=== PATIENT | male | born 1945 | race Asian ===

== ENCOUNTER 2016-08-06 01:30 | Inpatient (IN) | payer MEDICAID, MEDICARE, OTHER ==
[2016-08-06] VITALS (8 sets, daily range): BP systolic 112–147; BP diastolic 66–109
[~2016-08-06] VITALS: Ht 170.2 cm; Wt 70.8 kg
[2016-08-06] MEDS: DuoNeb 0.5-3(2.5)mg/3ml neb HHN SCH ×3 (01:45→02:12)
[2016-08-06 01:57] LABS: BASOPHILS % (AUTO) 0.8 % (0.0-2.0); EOSINOPHILS % (AUTO) 12.9 % (0.0-3.0); LYMPHOCYTES % (AUTO) 22.5 % (20.0-45.0); MEAN CORPUSCULAR HEMOGLOBIN 31.5 PG (27.0-31.0); MEAN CORPUSCULAR HGB CONC 34.6 G/DL (32.0-36.0); MEAN CORPUSCULAR VOLUME 91 FL (80-99); MEAN PLATELET VOLUME 4.8 FL (6.5-10.1); NEUTROPHILS % (AUTO) 56.9 % (45.0-75.0); PLATELET COUNT 369 K/UL (150-450); RED BLOOD COUNT 5.14 M/UL (4.70-6.10); WHITE BLOOD COUNT 13.2 K/UL (4.8-10.8)
[2016-08-06 02:28] LABS: ALANINE AMINOTRANSFERASE 25 U/L (3-41); ALBUMIN/GLOBULIN RATIO 1.5 (1.0-2.7); ANION GAP 17 (5-15); ASPARTATE AMINO TRANSFERASE 21 U/L (5-40); CALCIUM 8.8 mg/dL (8.6-10.2); CARBON DIOXIDE 24 mEQ/L (20-30); CHLORIDE 101 mEQ/L (98-107); CREATININE 1.1 mg/dL (0.7-1.2); HEMOLYSIS 9; POTASSIUM 3.6 mEQ/L (3.4-4.9); SODIUM 142 mEQ/L (135-145)
[2016-08-06 02:29] LABS: TROPONIN I < 0.30 ng/mL (<=0.30)
[2016-08-06] MEDS ORDERED: Solu-MEDROL 125mg Inj IVP ONE (02:30)
[2016-08-06 02:38] LABS: CKMB 6.8 ng/mL (< 6.7)
[2016-08-06] MEDS ORDERED: SINGULAIR10 MG ORAL (03:10)
[2016-08-06] MEDS ORDERED: PROAIR HFA8.5 GM INH (03:10)
--- NOTE | 2016-08-06 03:40 | Emergency Room Report ---
History of Present Illness General Chief Complaint: Dyspnea/Respdistress Source: Patient, EMS Present Illness HPI Patient is a 71-year-old male who presented after increased difficulty breathing. Patient prior history of asthma. He had acute worsening of symptoms over the past few hours. Patient was ambulatory prior to presentation. Patient had previously been taking albuterol inhaler as well as Singulair. I had prior history of asthma. The patient was brought in by EMS on CPAP. He was noted to have moderate difficulty breathing. Allergies: Coded Allergies: No Known Allergies (Unverified , 08/06/16) Patient History Past Medical History: asthma Reviewed Nursing Documentation: PMH: Agreed, PSxH: Agreed Nursing Documentation-PMH Past Medical History: No History, Except For Hx Asthma: Yes Hx COPD: Yes Review of Systems All Other Systems: limited - by acuity Physical Exam Vital Signs Date Time Temp Pulse Resp B/P Pulse Ox O2 Delivery O2 Flow Rate FiO2 08/06/16 01:35 98.2 126 28 164/94 99 Bi-pap 35 Sp02 EP Interpretation: reviewed, normal General Appearance: normal inspection, alert, GCS 15, moderate distress Head: atraumatic ENT: normal ENT inspection, hearing grossly normal, normal voice Neck: normal inspection, full range of motion, supple, no bony tend Respiratory: normal inspection, no retraction, accessory muscle use, wheezing Cardiovascular #1: regular rate, rhythm, no edema Gastrointestinal: normal inspection, normal bowel sounds, non tender, soft, no guarding, no hernia Genitourinary: no CVA tenderness Musculoskeletal: normal inspection, back normal, normal range of motion Neurologic: normal inspection, alert, oriented x3, responsive, speech normal Psychiatric: normal inspection, judgement/insight normal, mood/affect normal Skin: normal inspection, normal color, no rash Medical Decision Making Diagnostic Impression: Primary Impression: Asthma exacerbation ER Course Patient presented for shortness of breath. Differential included but was not limited to anemia, pneumonia, pneumothorax, myocardial infarction, pericardial effusion, congestive heart failure, acidosis. Because of complexity of patient' s case laboratory testing and imaging studies were ordered. EKG interpreted by me showed sinus tachycardia with a rate of [address] there were [address] acute ST or T wave changes noted. The patient was given IV Solu-Medrol as well as multiple breathing treatments with improvement. Patient was placed on BiPAP on arrival. He seemed to have some improvement was subsequently placed on nasal cannula. Dr. Yusuf was contacted for inpatient management due to need for inpatient monitoring and treatment. Labs Test 08/06/16 01:40 White Blood Count 13.2 K/UL (4.8-10.8) Red Blood Count 5.14 M/UL (4.70-6.10) Hemoglobin 16.2 G/DL (14.2-18.0) Hematocrit 46.7 % (42.0-52.0) Mean Corpuscular Volume 91 FL (80-99) Mean Corpuscular Hemoglobin 31.5 PG (27.0-31.0) Mean Corpuscular Hemoglobin Concent 34.6 G/DL (32.0-36.0) Red Cell Distribution Width 12.0 % (11.6-14.8) Platelet Count 369 K/UL (150-450) Mean Platelet Volume 4.8 FL (6.5-10.1) Neutrophils (%) (Auto) 56.9 % (45.0-75.0) Lymphocytes (%) (Auto) 22.5 % (20.0-45.0) Monocytes (%) (Auto) 7.0 % (1.0-10.0) Eosinophils (%) (Auto) 12.9 % (0.0-3.0) Basophils (%) (Auto) 0.8 % (0.0-2.0) Sodium Level 142 mEQ/L (135-145) Potassium Level 3.6 mEQ/L (3.4-4.9) Chloride Level 101 mEQ/L (98-107) Carbon Dioxide Level 24 mEQ/L (20-30) Anion Gap 17 (5-15) Blood Urea Nitrogen 18 mg/dL (7-23) Creatinine 1.1 mg/dL (0.7-1.2) Estimat Glomerular Filtration Rate mL/min (>60) Glucose Level 119 mg/dL (74-106) Calcium Level 8.8 mg/dL (8.6-10.2) Total Bilirubin 0.6 mg/dL (0.0-1.2) Aspartate Amino Transf (AST/SGOT) 21 U/L (5-40) Alanine Aminotransferase (ALT/SGPT) 25 U/L (3-41) Alkaline Phosphatase 55 U/L (40-129) Total Creatine Kinase 115 U/L (38-174) Creatine Kinase MB 6.8 ng/mL (< 6.7) Creatine Kinase MB Relative Index 5.9 Troponin I < 0.30 ng/mL (<=0.30) Pro-B-Type Natriuretic Peptide 20 pg/mL (0-125) Total Protein 7.0 g/dL (6.6-8.7) Albumin 4.2 g/dL (3.5-5.2) Globulin 2.8 g/dL Albumin/Globulin Ratio 1.5 (1.0-2.7) EKG Diagnostic Results Rate: tachycardiac Rhythm: NSR ST Segments: no acute changes ASA given to the pt in ED: No Rhythm Strip Diag. Results EP Interpretation: yes Rhythm: no PVC's, no ectopy, other Chest X-Ray Diagnostic Results Chest X-Ray Ordered: Yes # of Views/Limited/Complete: 1 View Interpretation: no consolidation, no effusion, no pneumothorax, no acute cardiopulmonary disease Indication: Shortness of Breath Impression: No acute disease Date Electronically Signed: Aug 06, 2016 Time Electronically Signed: 03:37 Last Vital Signs Date Time Temp Pulse Resp B/P Pulse Ox O2 Delivery O2 Flow Rate FiO2 08/06/16 02:58 101 17 133/79 98 Bi-pap 35 08/06/16 01:35 98.2 Status: improved Disposition: ADMITTED INPATIENT Condition: Serious Referrals: NOT CHOSEN NGUYEN/,REFERRING (PCP) Francisco Nixon Aug 06, 2016 03:40
[2016-08-06] MEDS ORDERED: Promethazine/Codeine 5ml UD ORAL PRN (07:30)
[2016-08-06] MEDS ORDERED: Azithromycin 500 MG in D5W 275 ML IVPB SCH (07:45)
[2016-08-06] MEDS: Solu-MEDROL 125mg Inj IVP SCH ×3 (08:32→20:37)
[2016-08-06] MEDS: Heparin 5000 units/ml inj SUBQ SCH ×2 (08:35→20:40)
--- NOTE | 2016-08-06 08:46 | History & Physical ---
History and Physical History & Physicial seen and examined. Dictation is completed Kala Yusuf MD Aug 06, 2016 08:46
--- NOTE | 2016-08-06 08:48 | General Progress Note ---
Assessment/Plan Status: stable Assessment/Plan 1- hypoxemic Respiratory distress 2- Asthma exacerbation 3- CAD- no evidence of active Acute disease Plan: Pulmonary Cardiology ID are consulted Subjective ROS Limited/Unobtainable: No Constitutional: Reports: no symptoms Respiratory: Reports: cough, shortness of breath Gastrointestinal/Abdominal: Reports: no symptoms Genitourinary: Reports: no symptoms Allergies: Coded Allergies: No Known Allergies (Unverified , 08/06/16) Objective Last 24 Hour Vital Signs Date Time Temp Pulse Resp B/P Pulse Ox O2 Delivery O2 Flow Rate FiO2 08/06/16 08:00 97.7 91 19 146/81 Nasal Cannula 2.0 95 08/06/16 06:00 96.1 92 21 146/109 96 Nasal Cannula 2.0 08/06/16 05:43 98.2 79 14 141/66 98 Nasal Cannula 2.0 28 08/06/16 05:18 79 14 141/66 98 Nasal Cannula 2.0 08/06/16 04:17 82 14 147/69 97 Nasal Cannula 2.0 08/06/16 03:10 96 Nasal Cannula 2.0 28 08/06/16 03:10 Nasal Cannula 2.0 28 08/06/16 02:58 101 17 133/79 98 Bi-pap 35 08/06/16 02:19 111 24 100 Bi-pap 30 08/06/16 02:00 118 27 100 Bi-pap 30 08/06/16 01:55 118 27 100 Facial 30 08/06/16 01:40 126 28 Bi-pap 35 08/06/16 01:35 35 08/06/16 01:35 98.2 126 28 164/94 99 Bi-pap 35 Intake and Output 08/05/16 08/06/16 19:00 07:00 Output Total 0 ml Balance 0 ml Output Urine Total 0 ml Laboratory Tests 08/06/16 01:40: White Blood Count 13.2H, Red Blood Count 5.14, Hemoglobin 16.2, Hematocrit 46.7 , Mean Corpuscular Volume 91, Mean Corpuscular Hemoglobin 31.5H, Mean Corpuscular Hemoglobin Concent 34.6, Red Cell Distribution Width 12.0, Platelet Count 369, Mean Platelet Volume 4.8L, Neutrophils (%) (Auto) 56.9, Lymphocytes ( %) (Auto) 22.5, Monocytes (%) (Auto) 7.0, Eosinophils (%) (Auto) 12.9H, Basophils (%) (Auto) 0.8, Sodium Level 142, Potassium Level 3.6, Chloride Level 101, Carbon Dioxide Level 24, Anion Gap 17H, Blood Urea Nitrogen 18, Creatinine 1.1, Estimat Glomerular Filtration Rate , Glucose Level 119H, Calcium Level 8.8 , Total Bilirubin 0.6, Aspartate Amino Transf (AST/SGOT) 21, Alanine Aminotransferase (ALT/SGPT) 25, Alkaline Phosphatase 55, Total Creatine Kinase 115, Creatine Kinase MB 6.8H, Creatine Kinase MB Relative Index 5.9, Troponin I < 0.30, Pro-B-Type Natriuretic Peptide 20, Total Protein 7.0, Albumin 4.2, Globulin 2.8, Albumin/Globulin Ratio 1.5 Height (Feet): 5 Height (Inches): 7.00 Weight (Pounds): 156 General Appearance: no apparent distress EENT: PERRL/EOMI Neck: supple Cardiovascular: normal rate Respiratory/Chest: expiratory wheezing, inspiratory wheezing Abdomen: soft Extremities: non-tender 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
[2016-08-06] MEDS ORDERED: Azithromycin 250 MG in D5W 275 ML IVPB SCH (09:00)
[2016-08-06] MEDS ORDERED: Heparin 5000 units/ml inj SUBQ SCH (09:00)
[2016-08-06 09:01] LABS: MEAN CORPUSCULAR HEMOGLOBIN 31.9 PG (27.0-31.0); MEAN CORPUSCULAR HGB CONC 35.1 G/DL (32.0-36.0); MEAN CORPUSCULAR VOLUME 91 FL (80-99); MEAN PLATELET VOLUME 4.8 FL (6.5-10.1); PLATELET COUNT 345 K/UL (150-450); RED BLOOD COUNT 4.97 M/UL (4.70-6.10); RED CELL DISTRIBUTION WIDTH 11.8 % (11.6-14.8); WHITE BLOOD COUNT 9.6 K/UL (4.8-10.8)
--- NOTE | 2016-08-06 09:09 | Diagnostic Imaging Report ---
Indication: Dyspnea Comparison: None A single view chest radiograph was obtained. Findings: Cardiomediastinal appearance is within normal limits for age. Pulmonary vascularity is appropriate. The diaphragmatic contour is smooth and costophrenic angles are sharp. No pleural effusions are identified. The bones are osteopenic. Impression: No acute findings
[2016-08-06 09:14] LABS: TROPONIN I < 0.30 ng/mL (<=0.30)
[2016-08-06 09:15] LABS: ANION GAP 18 (5-15); CALCIUM 8.8 mg/dL (8.6-10.2); CARBON DIOXIDE 22 mEQ/L (20-30); CHLORIDE 102 mEQ/L (98-107); CHOLESTEROL 132 mg/dL (< 200); CREATININE 1.1 mg/dL (0.7-1.2); HEMOLYSIS 10; LDL CHOLESTEROL (CALC.) 74 mg/dL (60-99); POTASSIUM 3.9 mEQ/L (3.4-4.9); SODIUM 142 mEQ/L (135-145)
[2016-08-06 09:25] LABS: THYROID STIMULATING HORMONE 0.711 uIU/mL (0.300-4.500)
[2016-08-06 09:51] LABS: HEMOGLOBIN A1C 5.2 % (< 6.0)
[2016-08-06 09:53] LABS: NEUTROPHILS % (MANUAL) 89 % (45-75); TOTAL CELLS COUNTED 100
[2016-08-06 09:54] LABS: BAND NEUTROPHILS % (MANUAL) 0 % (0-8); BASOPHILS % (MANUAL) 0 % (0-2); EOSINOPHILS % (MANUAL) 0 % (0-3); LYMPHOCYTES % (MANUAL) 8 % (20-45); PLATELET ESTIMATE ADEQUATE; PLATELET MORPHOLOGY NORMAL
[2016-08-06] MEDS ORDERED: Solu-MEDROL 125mg Inj IVP SCH (14:00)
--- NOTE | 2016-08-06 15:00 | History and Physical Report ---
DATE OF ADMISSION: 08/06/2016 SOURCE OF INFORMATION: The patient and EMR. HISTORY OF PRESENT ILLNESS: The patient is a pleasant 71-year-old Yi male. The patient presented with worsening of the shortness of breath for the last one week. The patient had been scheduled to see the Pulmonary as an outpatient. Had presented and evaluated the emergency room when his symptoms worsened during the outpatient visit to the hospital. Initial evaluation in the emergency room shows respiratory distress, hypoxemic type associated with the tachycardia. The patient was admitted for additional evaluation and the asthma exacerbation management. PAST MEDICAL HISTORY: Coronary artery disease, status post stent, asthma. PAST SURGICAL HISTORY: Including prostate and rectal cancer surgeries, status post PTCA one stent placement. MEDICATIONS: Heparin subcutaneous, Levaquin, and IV Solu-Medrol. ALLERGIES: NKDA. SOCIAL HISTORY: The patient is . He has one child. Denies history of illicit drug abuse, smoking or alcohol abuse. FAMILY HISTORY: Reviewed and noncontributory. PHYSICAL EXAMINATION: VITAL SIGNS: Blood pressure 160/90, temperature 98.2 degrees, pulse oximetry 100% on four liters of oxygen, and respiratory rate 18-17. HEENT: Head and neck, atraumatic and normocephalic. CHEST: Positive for the wheezing, positive for bronchial breathing sounds. HEART: S1 and S2. Regular rate and rhythm. ABDOMEN: Soft. No organomegaly. MUSCULOSKELETAL: No gross focal motor deficit. NEUROLOGICALLY: The patient is awake, alert and oriented x3. LABORATORY DATA: WBC 13.2, hemoglobin 16.2, and platelets 369,000. Sodium 142, potassium 3.6, BUN 18, and creatinine 1.1. LFT normal. ASSESSMENT: 1. Hypoxemic respiratory distress. 2. Asthma exacerbation. 3. Coronary artery disease, status post stent, no evidence of acute active cardiovascular disease. 4. Gastrointestinal and deep vein thrombosis prophylaxes. PLAN OF CARE: Continue with IV Solu-Medrol and antibiotics. Pulmonary, Dr. Willson, Infectious Dr. Ireland have been consulted and notified. COMMENTS: The time of this dictation does not reflect the actual time of encounter. Kala Yusuf M.D. DR: Liz JOB#: [id number] CC:
[2016-08-06] MEDS ORDERED: Pneumococcal Vaccine 25mcg/0.5ml IM ONE (16:00)
[2016-08-06] MEDS ORDERED: Tubing IV Secondary IV ONE (16:05)
[2016-08-06] MEDS ORDERED: NS 275ml ONE (16:05)
--- NOTE | 2016-08-06 18:58 | Consultation ---
History of Present Illness General Date patient seen: Aug 06, 2016 Chief Complaint: Dyspnea/Respdistress Referring physician: Dr. Yusuf Reason for Consultation: dyspnea Present Illness HPI 71-year-old male with PMHx of COPD, emphysema presented to ER with CC of increased difficulty breathing He had acute worsening of symptoms over the past few hours. The patient was brought in by EMS on CPAP. He was noted to have moderate difficulty breathing. Pt was started on Nebulizers and improved somewhat and transferred to telemetry for further treatment. Allergies: Coded Allergies: No Known Allergies (Unverified , 08/06/16) Medication History Scheduled Albuterol Sulfate* (Proair Hfa*), 2 PUFFS INH Q6H, (Reported) Montelukast Sodium* (Singulair*), 10 MG ORAL DAILY, (Reported) Patient History Healthcare decision maker Resuscitation status Full Code Advanced Directive on File No Review of Systems All Other Systems: negative except mentioned in HPI Physical Exam General Appearance: cachetic Lines, tubes and drains: peripheral, central line HEENT: normocephalic, atraumatic Neck: non-tender, normal alignment Respiratory/Chest: chest wall non-tender, lungs clear Breasts: no masses Cardiovascular/Chest: normal peripheral pulses Last 24 Hour Vital Signs Date Time Temp Pulse Resp B/P Pulse Ox O2 Delivery O2 Flow Rate FiO2 08/06/16 16:00 97.0 96 19 113/68 Nasal Cannula 08/06/16 16:00 101 08/06/16 12:00 97.7 102 19 119/83 Nasal Cannula 2.0 96 08/06/16 12:00 99 08/06/16 08:10 Nasal Cannula 2.0 28 08/06/16 08:10 95 Nasal Cannula 2.0 28 08/06/16 08:00 88 08/06/16 08:00 97.7 91 19 146/81 Nasal Cannula 2.0 95 08/06/16 06:00 96.1 92 21 146/109 96 Nasal Cannula 2.0 08/06/16 05:43 98.2 79 14 141/66 98 Nasal Cannula 2.0 28 08/06/16 05:18 79 14 141/66 98 Nasal Cannula 2.0 08/06/16 04:17 82 14 147/69 97 Nasal Cannula 2.0 08/06/16 03:10 96 Nasal Cannula 2.0 28 08/06/16 03:10 Nasal Cannula 2.0 28 08/06/16 02:58 101 17 133/79 98 Bi-pap 35 08/06/16 02:19 111 24 100 Bi-pap 30 08/06/16 02:00 118 27 100 Bi-pap 30 08/06/16 01:55 118 27 100 Facial 30 08/06/16 01:40 126 28 Bi-pap 35 08/06/16 01:35 35 08/06/16 01:35 98.2 126 28 164/94 99 Bi-pap 35 Intake and Output 08/05/16 08/06/16 19:00 07:00 Output Total 0 ml Balance 0 ml Output Urine Total 0 ml Laboratory Tests Test 08/06/16 01:40 08/06/16 08:34 White Blood Count 13.2 K/UL (4.8-10.8) H 9.6 K/UL (4.8-10.8) Red Blood Count 5.14 M/UL (4.70-6.10) 4.97 M/UL (4.70-6.10) Hemoglobin 16.2 G/DL (14.2-18.0) 15.9 G/DL (14.2-18.0) Hematocrit 46.7 % (42.0-52.0) 45.2 % (42.0-52.0) Mean Corpuscular Volume 91 FL (80-99) 91 FL (80-99) Mean Corpuscular Hemoglobin 31.5 PG (27.0-31.0) H 31.9 PG (27.0-31.0) H Mean Corpuscular Hemoglobin Concent 34.6 G/DL (32.0-36.0) 35.1 G/DL (32.0-36.0) Red Cell Distribution Width 12.0 % (11.6-14.8) 11.8 % (11.6-14.8) Platelet Count 369 K/UL (150-450) 345 K/UL (150-450) Mean Platelet Volume 4.8 FL (6.5-10.1) L 4.8 FL (6.5-10.1) L Neutrophils (%) (Auto) 56.9 % (45.0-75.0) % (45.0-75.0) Lymphocytes (%) (Auto) 22.5 % (20.0-45.0) % (20.0-45.0) Monocytes (%) (Auto) 7.0 % (1.0-10.0) % (1.0-10.0) Eosinophils (%) (Auto) 12.9 % (0.0-3.0) H % (0.0-3.0) Basophils (%) (Auto) 0.8 % (0.0-2.0) % (0.0-2.0) Sodium Level 142 mEQ/L (135-145) 142 mEQ/L (135-145) Potassium Level 3.6 mEQ/L (3.4-4.9) 3.9 mEQ/L (3.4-4.9) Chloride Level 101 mEQ/L (98-107) 102 mEQ/L (98-107) Carbon Dioxide Level 24 mEQ/L (20-30) 22 mEQ/L (20-30) Anion Gap 17 (5-15) H 18 (5-15) H Blood Urea Nitrogen 18 mg/dL (7-23) 14 mg/dL (7-23) Creatinine 1.1 mg/dL (0.7-1.2) 1.1 mg/dL (0.7-1.2) Estimat Glomerular Filtration Rate mL/min (>60) mL/min (>60) Glucose Level 119 mg/dL (74-106) H 151 mg/dL (74-106) H Calcium Level 8.8 mg/dL (8.6-10.2) 8.8 mg/dL (8.6-10.2) Total Bilirubin 0.6 mg/dL (0.0-1.2) Aspartate Amino Transf (AST/SGOT) 21 U/L (5-40) Alanine Aminotransferase (ALT/SGPT) 25 U/L (3-41) Alkaline Phosphatase 55 U/L (40-129) Total Creatine Kinase 115 U/L (38-174) Creatine Kinase MB 6.8 ng/mL (< 6.7) H Creatine Kinase MB Relative Index 5.9 Troponin I < 0.30 ng/mL (<=0.30) < 0.30 ng/mL (<=0.30) Pro-B-Type Natriuretic Peptide 20 pg/mL (0-125) Total Protein 7.0 g/dL (6.6-8.7) Albumin 4.2 g/dL (3.5-5.2) Globulin 2.8 g/dL Albumin/Globulin Ratio 1.5 (1.0-2.7) Differential Total Cells Counted 100 Neutrophils % (Manual) 89 % (45-75) H Lymphocytes % (Manual) 8 % (20-45) L Monocytes % (Manual) 3 % (1-10) Eosinophils % (Manual) 0 % (0-3) Basophils % (Manual) 0 % (0-2) Band Neutrophils 0 % (0-8) Platelet Estimate Adequate Platelet Morphology Normal Red Blood Cell Morphology Normal Hemoglobin A1c 5.2 % (< 6.0) Triglycerides Level 68 mg/dL (< 150) Cholesterol Level 132 mg/dL (< 200) LDL Cholesterol 74 mg/dL (60-99) HDL Cholesterol 44 mg/dL (> 60) Cholesterol/HDL Ratio 3.0 (3.3-4.4) L Thyroid Stimulating Hormone (TSH) 0.711 uIU/mL (0.300-4.500) Height (Feet): 5 Height (Inches): 7.00 Weight (Pounds): 156 Medications Current Medications Medications (Trade) Dose Ordered Sig/Romario Route PRN Reason Start Time Stop Time Status Last Admin Dose Admin Acetaminophen (Tylenol) 650 mg Q4H PRN ORAL Mild Pain/Temp > 100.5 08/06/16 07:30 09/05/16 07:29 Albuterol/ Ipratropium (DuoNeb 0.5-3(2.5)mg/3ml) 3 ml Q4H PRN HHN Shortness of Breath 08/06/16 19:00 08/11/16 18:59 UNV Heparin Sodium (Porcine) (Heparin 5000 units/ml) 5,000 units EVERY 12 HOURS SUBQ 08/06/16 09:00 09/05/16 08:59 08/06/16 08:35 Levofloxacin (Levaquin) 100 ml @ 100 mls/hr Q24H IVPB 08/06/16 09:00 08/13/16 08:59 08/06/16 08:33 Methylprednisolone Sodium Succinate (Solu-MEDROL) 60 mg EVERY 8 HOURS IVP 08/06/16 08:00 09/05/16 07:59 08/06/16 13:31 Pantoprazole (Protonix) 40 mg DAILY ORAL 08/06/16 09:00 09/05/16 08:59 08/06/16 08:32 Promethazine HCl/ Codeine 5 ml 5 ml Q4H PRN ORAL For Cough 08/06/16 07:30 09/05/16 07:29 Assessment/Plan Problem List: (1) COPD with acute exacerbation ICD Codes: J44.1 - Chronic obstructive pulmonary disease with (acute) exacerbation SNOMED: 088914752 (2) Purulent bronchitis ICD Codes: J41.1 - Mucopurulent chronic bronchitis SNOMED: 00863023 (3) Asthma exacerbation ICD Codes: J45.901 - Unspecified asthma with (acute) exacerbation SNOMED: 773772891 Assessment/Plan iv steroids iv antibiotics check sputum titrate fio2 to sat of 92% dvt prophylaxis ALEXANDRIA HOLLIS Aug 06, 2016 18:58
[2016-08-06] MEDS: DuoNeb 0.5-3(2.5)mg/3ml neb HHN PRN (20:07)
[2016-08-07] VITALS: BP 133/80
[2016-08-07] MEDS: DuoNeb 0.5-3(2.5)mg/3ml neb HHN PRN (00:25)
[2016-08-07 04:50] VITALS: BP 133/80
[2016-08-07] MEDS: Solu-MEDROL 125mg Inj IVP SCH ×3 (05:38→21:45)
[2016-08-07 08:00] VITALS: BP 133/81
[2016-08-07] MEDS: Heparin 5000 units/ml inj SUBQ SCH ×2 (08:09→21:51)
[2016-08-07 12:00] VITALS: BP 132/70
--- NOTE | 2016-08-07 12:59 | General Progress Note ---
Assessment/Plan Status: stable Assessment/Plan 1. Hypoxemic respiratory distress. 2. Asthma exacerbation. 3. Coronary artery disease, status post stent, no evidence of acute active cardiovascular disease. 4. Gastrointestinal and deep vein thrombosis prophylaxes. Plan: Pulmonary Note is reviewed current management Subjective ROS Limited/Unobtainable: No Constitutional: Reports: no symptoms HEENT: Reports: no symptoms Respiratory: Reports: cough, shortness of breath Allergies: Coded Allergies: No Known Allergies (Unverified , 08/06/16) Objective Last 24 Hour Vital Signs Date Time Temp Pulse Resp B/P Pulse Ox O2 Delivery O2 Flow Rate FiO2 08/07/16 12:00 97.0 74 18 132/70 94 Room Air 08/07/16 08:01 Venturi Mask 14.0 55 08/07/16 08:01 96 Venturi Mask 14.0 55 08/07/16 08:00 98.2 87 18 133/81 92 Room Air 08/07/16 08:00 81 08/07/16 04:50 98.6 86 20 133/80 93 Room Air 08/07/16 01:04 113 08/07/16 01:04 79 08/07/16 00:30 98 20 100 Venturi Mask 15.0 55 08/07/16 00:28 112 22 96 Venturi Mask 15.0 55 08/07/16 00:03 86 08/07/16 00:00 98.6 86 20 133/80 93 Room Air 08/06/16 22:08 97 08/06/16 20:07 95 22 96 Nasal Cannula 2.0 28 08/06/16 20:03 Nasal Cannula 2.0 28 08/06/16 20:02 95 Nasal Cannula 2.0 28 08/06/16 20:00 97.0 97 20 134/79 93 Nasal Cannula 2.0 08/06/16 16:00 97.0 96 19 113/68 Nasal Cannula 08/06/16 16:00 101 Intake and Output 08/06/16 08/07/16 19:00 07:00 Intake Total 100 ml 300 ml Balance 100 ml 300 ml Intake Oral 300 ml IV Total 100 ml Height (Feet): 5 Height (Inches): 7.00 Weight (Pounds): 156 General Appearance: no apparent distress EENT: PERRL/EOMI Neck: supple Cardiovascular: normal rate Respiratory/Chest: rhonchi - bilaterally, expiratory wheezing Abdomen: soft Extremities: non-tender 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
[2016-08-07] MEDS: Lidocaine 1% MPF 10mg/ml 5ml HHN PRN ×2 (13:46→19:14)
--- NOTE | 2016-08-07 15:54 | Pulmonology Progress Note ---
Assessment/Plan Problems: (1) COPD with acute exacerbation (2) Purulent bronchitis (3) Asthma exacerbation Assessment/Plan CT chest Lidocaine inhalation for refractory cough same dose of steroids check sputum, not available yet continue antibiotics might go to med/surg Subjective ROS Limited/Unobtainable: No Interval Events: episodes of severe cough last night Allergies: Coded Allergies: No Known Allergies (Unverified , 08/06/16) Objective Last 24 Hour Vital Signs Date Time Temp Pulse Resp B/P Pulse Ox O2 Delivery O2 Flow Rate FiO2 08/07/16 14:06 98 20 100 Nasal Cannula 2.0 28 08/07/16 13:46 110 18 96 Nasal Cannula 2.0 28 08/07/16 12:00 97.0 74 18 132/70 94 Room Air 08/07/16 12:00 77 08/07/16 08:01 Venturi Mask 14.0 55 08/07/16 08:01 96 Venturi Mask 14.0 55 08/07/16 08:00 98.2 87 18 133/81 92 Room Air 08/07/16 08:00 81 08/07/16 04:50 98.6 86 20 133/80 93 Room Air 08/07/16 01:04 113 08/07/16 01:04 79 08/07/16 00:30 98 20 100 Venturi Mask 15.0 55 08/07/16 00:28 112 22 96 Venturi Mask 15.0 55 08/07/16 00:03 86 08/07/16 00:00 98.6 86 20 133/80 93 Room Air 08/06/16 22:08 97 08/06/16 20:07 95 22 96 Nasal Cannula 2.0 28 08/06/16 20:03 Nasal Cannula 2.0 28 08/06/16 20:02 95 Nasal Cannula 2.0 28 08/06/16 20:00 97.0 97 20 134/79 93 Nasal Cannula 2.0 08/06/16 16:00 97.0 96 19 113/68 Nasal Cannula 08/06/16 16:00 101 Intake and Output 08/06/16 08/07/16 18:59 06:59 Intake Total 100 ml 300 ml Balance 100 ml 300 ml Intake Oral 300 ml IV Total 100 ml Objective General Appearance: WN,WD Lines, tubes and drains: peripheral, \ HEENT: normocephalic, atraumatic Neck: non-tender, normal alignment Respiratory/Chest: chest wall non-tender, lungs rhonchi Breasts: no masses Cardiovascular/Chest: normal peripheral pulses Microbiology Date/Time Source Procedure Growth Status 08/06/16 09:45 Sputum Gram Stain - Final Resulted 08/06/16 09:45 Sputum Sputum Culture - Preliminary NORMAL UPPER RESPIRATORY WILLIE AT 24 ... Resulted Current Medications Medications (Trade) Dose Ordered Sig/Romario Route PRN Reason Start Time Stop Time Status Last Admin Dose Admin Acetaminophen (Tylenol) 650 mg Q4H PRN ORAL Mild Pain/Temp > 100.5 08/06/16 07:30 09/05/16 07:29 Albuterol/ Ipratropium (DuoNeb 0.5-3(2.5)mg/3ml) 3 ml Q4H PRN HHN Shortness of Breath 08/06/16 19:00 08/11/16 18:59 08/07/16 00:25 Heparin Sodium (Porcine) (Heparin 5000 units/ml) 5,000 units EVERY 12 HOURS SUBQ 08/06/16 09:00 09/05/16 08:59 08/07/16 08:09 Levofloxacin (Levaquin) 100 ml @ 100 mls/hr Q24H IVPB 08/06/16 09:00 08/13/16 08:59 08/07/16 08:08 Lidocaine (Xylocaine 1% MPF 5ml) 10 ml Q4H PRN HHN cough 08/07/16 12:45 09/06/16 12:44 08/07/16 13:46 Methylprednisolone Sodium Succinate (Solu-MEDROL) 60 mg EVERY 8 HOURS IVP 08/06/16 08:00 09/05/16 07:59 08/07/16 13:35 Pantoprazole (Protonix) 40 mg DAILY ORAL 08/06/16 09:00 09/05/16 08:59 08/07/16 08:05 Promethazine HCl/ Codeine 5 ml 5 ml Q4H PRN ORAL For Cough 08/06/16 07:30 09/05/16 07:29 08/07/16 00:23 ALEXANDRIA HOLLIS Aug 07, 2016 15:54
[2016-08-07 16:00] VITALS: BP 134/83
[2016-08-07 20:00] VITALS: BP 112/72
[2016-08-07] MEDS ORDERED: Lidocaine 1% MPF 10mg/ml 5ml HHN PRN (20:45)
[2016-08-07] MEDS ORDERED: DuoNeb 0.5-3(2.5)mg/3ml neb HHN PRN (23:00)
[2016-08-08] VITALS: BP 122/79
[2016-08-08] MEDS: Promethazine/Codeine 5ml UD ORAL PRN ×2 (03:39→13:04)
[2016-08-08 04:00] VITALS: BP 151/83
[2016-08-08] MEDS: Solu-MEDROL 125mg Inj IVP SCH ×3 (06:19→21:07)
[2016-08-08 07:08] LABS: MEAN CORPUSCULAR HEMOGLOBIN 31.8 PG (27.0-31.0); MEAN CORPUSCULAR HGB CONC 35.1 G/DL (32.0-36.0); MEAN CORPUSCULAR VOLUME 91 FL (80-99); PLATELET COUNT 329 K/UL (150-450); RED BLOOD COUNT 4.37 M/UL (4.70-6.10)
[2016-08-08 07:18] LABS: ALANINE AMINOTRANSFERASE 28 U/L (3-41); ALBUMIN/GLOBULIN RATIO 1.5 (1.0-2.7); ANION GAP 17 (5-15); ASPARTATE AMINO TRANSFERASE 24 U/L (5-40); CALCIUM 8.6 mg/dL (8.6-10.2); CARBON DIOXIDE 24 mEQ/L (20-30); CHLORIDE 100 mEQ/L (98-107); HEMOLYSIS 5; MAGNESIUM 2.1 mg/dL (1.7-2.5); PHOSPHORUS 3.1 mg/dL (2.5-4.8); POTASSIUM 3.7 mEQ/L (3.4-4.9); SODIUM 141 mEQ/L (135-145)
[2016-08-08 07:24] LABS: WHITE BLOOD COUNT 24.4 K/UL (4.8-10.8)
[2016-08-08 08:12] VITALS: BP 123/75
[2016-08-08] MEDS: Heparin 5000 units/ml inj SUBQ SCH ×2 (08:20→21:03)
--- NOTE | 2016-08-08 09:23 | General Progress Note ---
Assessment/Plan Status: stable Assessment/Plan 1. Hypoxemic respiratory distress. 2. Asthma exacerbation. 3. Coronary artery disease, status post stent, no evidence of acute active cardiovascular disease. 4. Gastrointestinal and deep vein thrombosis prophylaxes. Plan: Pulmonary Note is reviewed Ct-chest pending ok to transfer to [facility] current management Subjective ROS Limited/Unobtainable: No Constitutional: Reports: no symptoms HEENT: Reports: no symptoms Cardiovascular: Reports: no symptoms Respiratory: Reports: shortness of breath Allergies: Coded Allergies: No Known Allergies (Unverified , 08/06/16) Objective Last 24 Hour Vital Signs Date Time Temp Pulse Resp B/P Pulse Ox O2 Delivery O2 Flow Rate FiO2 08/08/16 08:12 97.2 89 18 123/75 91 Room Air 08/08/16 07:54 95 Nasal Cannula 2.0 28 08/08/16 07:54 Nasal Cannula 2.0 28 08/08/16 04:00 72 20 151/83 93 Room Air 08/08/16 01:50 72 20 99 Nasal Cannula 2.0 28 08/08/16 01:47 67 20 97 Nasal Cannula 2.0 28 08/08/16 00:00 97.3 63 18 122/79 92 Room Air 08/07/16 20:00 97.9 80 21 112/72 97 Room Air 08/07/16 19:16 96 Nasal Cannula 2.0 28 08/07/16 19:16 Nasal Cannula 2.0 28 08/07/16 19:16 88 20 99 Nasal Cannula 2.0 28 08/07/16 19:15 81 20 96 Nasal Cannula 2.0 28 08/07/16 16:00 83 08/07/16 16:00 96.4 99 18 134/83 93 Room Air 08/07/16 14:06 98 20 100 Nasal Cannula 2.0 28 08/07/16 13:46 110 18 96 Nasal Cannula 2.0 28 08/07/16 12:00 97.0 74 18 132/70 94 Room Air 08/07/16 12:00 77 Intake and Output 08/07/16 08/08/16 19:00 07:00 Intake Total 100 ml 150 ml Balance 100 ml 150 ml Intake Oral 150 ml IV Total 100 ml # Voids 1 Laboratory Tests 08/08/16 04:30: White Blood Count 24.4*H, Red Blood Count 4.37L, Hemoglobin 13.9L, Hematocrit 39.7L, Mean Corpuscular Volume 91, Mean Corpuscular Hemoglobin 31.8H, Mean Corpuscular Hemoglobin Concent 35.1, Red Cell Distribution Width 12.0, Platelet Count 329, Mean Platelet Volume 5.0L, Neutrophils (%) (Auto) , Lymphocytes (%) ( Auto) , Monocytes (%) (Auto) , Eosinophils (%) (Auto) , Basophils (%) (Auto) , Neutrophils % (Manual) [Pending], Lymphocytes % (Manual) [Pending], Platelet Estimate [Pending], Platelet Morphology [Pending], Sodium Level 141, Potassium Level 3.7, Chloride Level 100, Carbon Dioxide Level 24, Anion Gap 17H, Blood Urea Nitrogen 22, Creatinine 1.0, Estimat Glomerular Filtration Rate , Glucose Level 125H, Calcium Level 8.6, Phosphorus Level 3.1, Magnesium Level 2.1, Total Bilirubin 0.4, Aspartate Amino Transf (AST/SGOT) 24, Alanine Aminotransferase ( ALT/SGPT) 28, Alkaline Phosphatase 60, Total Protein 6.0L, Albumin 3.6, Globulin 2.4, Albumin/Globulin Ratio 1.5 Height (Feet): 5 Height (Inches): 7.00 Weight (Pounds): 156 General Appearance: no apparent distress EENT: PERRL/EOMI Neck: supple Cardiovascular: normal rate Respiratory/Chest: rhonchi - bilaterally Abdomen: soft Extremities: non-tender 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
[2016-08-08 09:44] LABS: LYMPHOCYTES % (MANUAL) 5 % (20-45); NEUTROPHILS % (MANUAL) 92 % (45-75); TOTAL CELLS COUNTED 100
[2016-08-08 09:47] LABS: BAND NEUTROPHILS % (MANUAL) 0 % (0-8); BASOPHILS % (MANUAL) 0 % (0-2); EOSINOPHILS % (MANUAL) 0 % (0-3); PLATELET ESTIMATE ADEQUATE; PLATELET MORPHOLOGY NORMAL
[2016-08-08 12:00] VITALS: BP 124/82
[2016-08-08 15:41] VITALS: BP 123/75
--- NOTE | 2016-08-08 16:52 | Physician Query ---
PLEASE COMPLETE THE FORM BEFORE SIGNING Dear Dr. Kala Yusuf Date July [employer]CDS [place] [employer]/CDS Phone #: [phone] Exercise your independent professional judgment when responding to query. Questions asked do not imply particular answer is desired or expected. We greatly appreciate your clarification on this issue. Clinical Documentation States: "The patient presented with worsening of the shortness of breath for the last one week. Initial evaluation in the emergency room shows respiratory distress hypoxemic type associated with the tachycardia" documented in the H/P of Dr. Yusuf. Clinical Findings Show: RR:28,27,27,24 Short of Breath, Labored Breathing Please clarify if the patient had any of the following conditions based on the above clinical findings: [X]Respiratory Failure [] Acute [] Chronic (on home O2) [X]Acute on Chronic [] Acute Respiratory Distress [] Acute Respiratory Insufficiency [] Respiratory failure due to trauma [] Respiratory insufficiency due to trauma [] Unable to determine [] Other: Condition Present on Admission: [X] Yes [] No []Clinically Undeterminable Please also document in your Progress Notes and/or Discharge Summary and indicate if the condition was present on admission. Kala Yusuf 08/09/16 Kala Yusuf M.D. Time/Date MTDD
[2016-08-08 20:00] VITALS: BP 121/74
--- NOTE | 2016-08-08 21:53 | Pulmonology Progress Note ---
Assessment/Plan Problems: (1) COPD with acute exacerbation (2) Purulent bronchitis (3) Asthma exacerbation Assessment/Plan CT chest done, results peindig Lidocaine inhalation for refractory cough taper steroids check sputum, not available yet continue antibiotics med/surg dc planning in 1/2 days Subjective Interval Events: cough is better Allergies: Coded Allergies: No Known Allergies (Unverified , 08/06/16) Objective Last 24 Hour Vital Signs Date Time Temp Pulse Resp B/P Pulse Ox O2 Delivery O2 Flow Rate FiO2 08/08/16 20:00 97.6 64 18 121/74 92 Room Air 08/08/16 19:48 93 Room Air 08/08/16 19:48 Room Air 08/08/16 15:41 96.3 63 18 123/75 98 Room Air 08/08/16 12:00 97.2 78 18 124/82 100 Room Air 08/08/16 08:12 97.2 89 18 123/75 91 Room Air 08/08/16 07:54 95 Nasal Cannula 2.0 28 08/08/16 07:54 Nasal Cannula 2.0 28 08/08/16 04:00 72 20 151/83 93 Room Air 08/08/16 01:50 72 20 99 Nasal Cannula 2.0 28 08/08/16 01:47 67 20 97 Nasal Cannula 2.0 28 08/08/16 00:00 97.3 63 18 122/79 92 Room Air Intake and Output 08/07/16 08/08/16 19:00 07:00 Intake Total 100 ml 150 ml Balance 100 ml 150 ml Intake Oral 150 ml IV Total 100 ml # Voids 1 Objective General Appearance: WN,WD Lines, tubes and drains: peripheral, \ HEENT: normocephalic, atraumatic Neck: non-tender, normal alignment Respiratory/Chest: chest wall non-tender, lungs rhonchi Breasts: no masses Cardiovascular/Chest: normal peripheral pulses Microbiology Date/Time Source Procedure Growth Status 08/06/16 09:45 Sputum Gram Stain - Final Complete 08/06/16 09:45 Sputum Sputum Culture - Final NORMAL UPPER RESPIRATORY WILLIE PRESENT Complete Laboratory Tests 08/08/16 04:30: White Blood Count 24.4*H, Red Blood Count 4.37L, Hemoglobin 13.9L, Hematocrit 39.7L, Mean Corpuscular Volume 91, Mean Corpuscular Hemoglobin 31.8H, Mean Corpuscular Hemoglobin Concent 35.1, Red Cell Distribution Width 12.0, Platelet Count 329, Mean Platelet Volume 5.0L, Neutrophils (%) (Auto) , Lymphocytes (%) ( Auto) , Monocytes (%) (Auto) , Eosinophils (%) (Auto) , Basophils (%) (Auto) , Differential Total Cells Counted 100, Neutrophils % (Manual) 92H, Lymphocytes % (Manual) 5L, Monocytes % (Manual) 3, Eosinophils % (Manual) 0, Basophils % ( Manual) 0, Band Neutrophils 0, Platelet Estimate Adequate, Platelet Morphology Normal, Red Blood Cell Morphology Normal, Sodium Level 141, Potassium Level 3.7 , Chloride Level 100, Carbon Dioxide Level 24, Anion Gap 17H, Blood Urea Nitrogen 22, Creatinine 1.0, Estimat Glomerular Filtration Rate , Glucose Level 125H, Calcium Level 8.6, Phosphorus Level 3.1, Magnesium Level 2.1, Total Bilirubin 0.4, Aspartate Amino Transf (AST/SGOT) 24, Alanine Aminotransferase ( ALT/SGPT) 28, Alkaline Phosphatase 60, Total Protein 6.0L, Albumin 3.6, Globulin 2.4, Albumin/Globulin Ratio 1.5 Current Medications Medications (Trade) Dose Ordered Sig/Romario Route PRN Reason Start Time Stop Time Status Last Admin Dose Admin Acetaminophen (Tylenol) 650 mg Q4H PRN ORAL Mild Pain/Temp > 100.5 08/07/16 23:30 09/06/16 23:29 Albuterol/ Ipratropium (DuoNeb 0.5-3(2.5)mg/3ml) 3 ml Q4H PRN HHN Shortness of Breath 08/07/16 23:00 08/12/16 22:59 Heparin Sodium (Porcine) (Heparin 5000 units/ml) 5,000 units EVERY 12 HOURS SUBQ 08/07/16 21:00 09/06/16 20:59 08/08/16 21:03 Levofloxacin (Levaquin) 100 ml @ 100 mls/hr Q24H IVPB 08/08/16 09:00 08/15/16 08:59 08/08/16 08:13 Lidocaine (Xylocaine 1% MPF 5ml) 10 ml Q4H PRN HHN cough 08/07/16 20:45 09/06/16 20:44 08/08/16 01:47 Methylprednisolone Sodium Succinate (Solu-MEDROL) 60 mg EVERY 8 HOURS IVP 08/07/16 22:00 09/06/16 21:59 08/08/16 21:07 Pantoprazole (Protonix) 40 mg DAILY ORAL 08/08/16 09:00 09/07/16 08:59 08/08/16 08:13 Promethazine HCl/ Codeine (Phenergan with Codeine) 5 ml Q4H PRN ORAL For Cough 08/07/16 23:30 09/06/16 23:29 08/08/16 13:04 ALEXANDRIA HOLLIS Aug 08, 2016 21:53
[2016-08-09 00:01] VITALS: BP 132/81
[2016-08-09 04:00] VITALS: BP 153/86
[2016-08-09 08:02] VITALS: BP 123/123
[2016-08-09] MEDS ORDERED: Solu-MEDROL 125mg Inj IVP SCH (09:00)
[2016-08-09] MEDS: Heparin 5000 units/ml inj SUBQ SCH (09:31)
--- NOTE | 2016-08-09 10:01 | General Progress Note ---
Assessment/Plan Status: stable Assessment/Plan 1. Hypoxemic respiratory distress. 2. Asthma exacerbation. 3. Coronary artery disease, status post stent, no evidence of acute active cardiovascular disease. 4. Gastrointestinal and deep vein thrombosis prophylaxes. Plan: Pulmonary Note is reviewed Ct-chest pending ok to Discharge pending to Pulmonary clearance Subjective Constitutional: Reports: no symptoms HEENT: Reports: no symptoms Allergies: Coded Allergies: No Known Allergies (Unverified , 08/06/16) Objective Last 24 Hour Vital Signs Date Time Temp Pulse Resp B/P Pulse Ox O2 Delivery O2 Flow Rate FiO2 08/09/16 08:02 97.4 85 15 123/123 91 Nasal Cannula 08/09/16 06:45 94 Room Air 08/09/16 06:45 Room Air 08/09/16 04:00 97.7 62 18 153/86 94 Room Air 08/09/16 00:01 97.0 63 18 132/81 93 Room Air 08/08/16 20:00 97.6 64 18 121/74 92 Room Air 08/08/16 19:48 93 Room Air 08/08/16 19:48 Room Air 08/08/16 15:41 96.3 63 18 123/75 98 Room Air 08/08/16 12:00 97.2 78 18 124/82 100 Room Air Intake and Output 08/08/16 08/09/16 19:00 07:00 Intake Total 940 ml 240 ml Balance 940 ml 240 ml Intake Oral 840 ml 240 ml IV Total 100 ml # Voids 5 4 # Bowel Movements 1 Height (Feet): 5 Height (Inches): 7.00 Weight (Pounds): 156 General Appearance: no apparent distress EENT: PERRL/EOMI Neck: supple Cardiovascular: normal rate Respiratory/Chest: rhonchi - bilaterally Abdomen: soft Extremities: non-tender 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
[2016-08-09] MEDS: Promethazine/Codeine 5ml UD ORAL PRN (10:54)
--- NOTE | 2016-08-09 11:29 | Diagnostic Imaging Report ---
Clinical Indication: COUGH, shortness of breath, history of COPD and emphysema Technique: IV administration nonionic contrast. Spiral acquisition obtained through the chest. Multiplanar reconstructions generated. Total dose length product 705 mGycm. CTDIvol(s) 18 mGy. Dose reduction achieved using automated exposure control Comparison: None Findings: There is atelectasis and/or scarring at both lung bases. There is some slight bronchiectasis at the left lung base. In the right lung, there a 3 mm nodule anterolaterally, series 5 image 24. This probably represents focal thickening of the minor fissure. There is a 6 mm nodule at the pleural surface of the right middle lobe anterolaterally, series 5 image 33. No other mass or nodule demonstrated. There is minimal atelectasis or scarring in the left upper lobe. No infiltrates. No bullae demonstrated. Lungs do not appear particularly hyperinflated. No congestion. The heart is upper limits normal in size. No pericardial effusion. No mediastinal or hilar mass or adenopathy. The included thyroid is unremarkable. No axillary or chest wall mass or adenopathy demonstrated. The bones are unremarkable for small sclerotic foci within the T7 and L1 vertebral bodies. The included upper abdominal viscera demonstrate multiple subcentimeter low-attenuation liver lesions which are too small to characterize. 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 Impression: Bilateral basilar and left upper lobe atelectasis versus scarring. No definite acute infiltrate. 6 mm nodule at the pleural surface of the right middle lobe. Recommend short interval followup CT at 6-12 months for further evaluation 3 mm focus of pleural thickening of the minor fissure Incidental findings of subcentimeter low-attenuation liver lesions, small duodenal diverticulum, probable small T7 and L1 bone islands The CT scanner at [facility] is accredited by the [employer] and the scans are performed using protocols designed to limit radiation exposure to as low as reasonably achievable to attain images of sufficient resolution adequate for diagnostic evaluation.
[2016-08-09 11:36] VITALS: BP 133/86
[2016-08-09] MEDS ORDERED: LEVAQUIN500 MG ORAL (14:02)
[2016-08-09] MEDS ORDERED: PREDNISONE10 M2 PO (14:03)
--- NOTE | 2016-08-09 15:10 | Pulmonology Progress Note ---
Assessment/Plan Problems: (1) COPD with acute exacerbation (2) Purulent bronchitis (3) Asthma exacerbation Assessment/Plan CT chest reviewed, taper steroids check sputum, not available yet continue antibiotics med/surg dc home with oral abx and steroids Subjective ROS Limited/Unobtainable: No Constitutional: Reports: no symptoms HEENT: Repors: no symptoms Respiratory: Reports: no symptoms Allergies: Coded Allergies: No Known Allergies (Unverified , 08/06/16) Objective Last 24 Hour Vital Signs Date Time Temp Pulse Resp B/P Pulse Ox O2 Delivery O2 Flow Rate FiO2 08/09/16 11:36 97.7 70 15 133/86 93 Nasal Cannula 08/09/16 08:02 97.4 85 15 123/123 91 Nasal Cannula 08/09/16 06:45 94 Room Air 08/09/16 06:45 Room Air 08/09/16 04:00 97.7 62 18 153/86 94 Room Air 08/09/16 00:01 97.0 63 18 132/81 93 Room Air 08/08/16 20:00 97.6 64 18 121/74 92 Room Air 08/08/16 19:48 93 Room Air 08/08/16 19:48 Room Air 08/08/16 15:41 96.3 63 18 123/75 98 Room Air Intake and Output 08/08/16 08/09/16 19:00 07:00 Intake Total 940 ml 240 ml Balance 940 ml 240 ml Intake Oral 840 ml 240 ml IV Total 100 ml # Voids 5 4 # Bowel Movements 1 Objective General Appearance: WN,WD Lines, tubes and drains: peripheral, \ HEENT: normocephalic, atraumatic Neck: non-tender, normal alignment Respiratory/Chest: chest wall non-tender, lungs rhonchi Breasts: no masses Cardiovascular/Chest: normal peripheral pulses ALEXANDRIA HOLLIS Aug 09, 2016 15:10
--- NOTE | 2016-08-09 18:23 | Cardiology Report ---
APPROVED REPORT EKG Measurement Heart [id number] VA [id number] Sinus tachycardia Rightward axis Septal infarct, age undetermined Abnormal ECG
--- NOTE | 2016-08-11 03:30 | Discharge Summary 2 SIG ---
DATE OF ADMISSION: 08/06/2016 DATE OF DISCHARGE: 08/09/2016 CORONARY CLINICAL SPECIALIST: Angie Willson M.D. BRIEF HOSPITAL COURSE: The patient is a 71-year-old [place]ian male, who presented with worsening shortness of breath for a week and had been scheduled to see a web analytics specialist as an outpatient, however, the symptoms have worsened and the patient presented to the ED, where on initial evaluation, was in respiratory distress, hypoxemic, and was tachycardic. EKG showed sinus tachycardia at 111. There were no acute ST or T-wave changes. He was given IV Solu-Medrol and multiple breathing treatments. He was placed on BiPAP on arrival and showed improvement and was subsequently placed on nasal cannula. He was admitted for further evaluation and management. Chest x-ray showed no consolidation, no effusion, no pneumothorax, and no acute cardiopulmonary disease. Dr. Willson was consulted and the patient was started on IV antibiotics and IV steroids. He was given lidocaine inhalation for cough and was tapered off steroids. Sputum culture showed growth of normal upper respiratory amelia. Chest CT scan showed bilateral basal and left upper lobe atelectasis. The patient was discharged home on oral antibiotic levofloxacin, and prednisone. FINAL DIAGNOSES: 1. Acute respiratory failure. 2. Acute asthma exacerbation. 3. Coronary artery disease, status post stent with no evidence of active cardiovascular disease. 4. Purulent bronchitis. 5. Chronic obstructive pulmonary disease with acute exacerbation. Kala Yusuf M.D. I have been assigned to dictate discharge summary on this account and I was not involved in the patient's management. Angélica Sanchez N.P. DR: Boris JOB#: [id number] CC: LAINA
== END 2016-08-09 14:20 | disposition home or self-care (01) | DRG 190 ==
LOC: EDBD 01:30 → EDUNIT# 01:30 → EMR 01:44 → 2E 03:10 → EDBEDREQSVC 03:28 → EDBEDREQ 03:28 → EDBEDREQTM 03:28 → EDBEDREQ 04:02 → 4E 08-07 20:24
PROC: 5A09357 Assistance with Respiratory Ventilation, Less than 24 Consecutive Hours, Continuous Positive Airway Pressure (ICD-10-PCS; principal; 2016-08-06)
DX: J44.1 Chronic obstructive pulmonary disease with (acute) exacerbation (principal); J96.20 Acute and chronic respiratory failure, unspecified whether with hypoxia or hypercapnia; R06.09 Other forms of dyspnea; J45.901 Unspecified asthma with (acute) exacerbation; J41.1 Mucopurulent chronic bronchitis; I25.10 Atherosclerotic heart disease of native coronary artery without angina pectoris; Z95.5 Presence of coronary angioplasty implant and graft; R00.0 Tachycardia, unspecified
CPT/HCPCS: 36415; 71010; 71260; 80048; 80053; 80061; 82550; 82553; 83036; 83735; 83880; 84100; 84443; 84484; 85007; 85025; 87070; 87205; 90732; 93005; 94640; 94760; J7620

== ENCOUNTER 2018-12-30 14:28 | Emergency (ER) | payer MEDICARE, OTHER ==
[~2018-12-30] VITALS: Ht 170.2 cm; Wt 63.5 kg
[~2018-12-30 14:28] MED LIST: LEVAQUIN500 MG ORAL; PREDNISONE10 M2 PO; PROAIR HFA8.5 GM INH; SINGULAIR10 MG ORAL
[2018-12-30] MEDS ORDERED: Albuterol ud Inhalation HHN ONE (14:30)
[2018-12-30] MEDS ORDERED: Ipratropium 0.02% Inh Soln 2.5ml UD HHN ONE (14:30)
[2018-12-30] MEDS ORDERED: Solu-MEDROL 125mg Inj IVP ONE (14:30)
--- NOTE | 2018-12-30 14:34 | Emergency Room Report ---
History of Present Illness General Chief Complaint: Dyspnea/Respdistress Source: Patient, EMS Present Illness HPI Patient presents via EMS with dyspnea. He has a history of asthma. He started to feel ill yesterday. He heard himself wheezing. The only medicine he has at home is Symbicort. This is not been helping. Paramedics gave him albuterol [address] in with some relief. He still feels himself wheezing. This is not his worst attack. Denies any chest pain. No fever, chills or productive cough. No sore throat. No nausea, vomiting or diarrhea. No edema or calf pain. Patient is status post stents. He has lower extremity discomfort at night. He does not take any medication to help with this. He says it has problems with his circulation. No chest pain, palpitations, dysuria, abdominal pain, joint pain, rashes, depression, anxiety, visual changes, dizziness, headache. Allergies: Coded Allergies: No Known Allergies (Unverified , 08/06/16) Patient History Past Medical History: see triage record Social History: Denies: smoking Social History Narrative From home -retired Reviewed Nursing Documentation: PMH: Agreed; PSxH: Agreed Nursing Documentation-PMH Hx Cardiac Problems: Yes - stent X1 Hx Asthma: Yes Hx COPD: Yes Hx Cancer: Yes Hx Gastrointestinal Problems: No Hx Neurological Problems: No Review of Systems All Other Systems: negative except mentioned in HPI Physical Exam Vital Signs Date Time Temp Pulse Resp B/P (MAP) Pulse Ox O2 Delivery O2 Flow Rate FiO2 12/30/18 14:21 98.1 115 24 133/73 (93) 96 Room Air Sp02 EP Interpretation: reviewed, normal General Appearance: well appearing, no apparent distress, GCS 15 Head: normocephalic Eyes: bilateral eye normal inspection, bilateral eye PERRL, bilateral eye EOMI ENT: moist mucus membranes Neck: supple Respiratory: chest non-tender, no respiratory distress, wheezing, expiration Cardiovascular #1: regular rate, rhythm Cardiovascular #2: 2+ radial (R) Gastrointestinal: normal inspection, normal bowel sounds, non tender, non- distended Genitourinary: no CVA tenderness Musculoskeletal: back normal, gait/station normal, normal range of motion Neurologic: alert, oriented x3, grossly normal Psychiatric: mood/affect normal Skin: no rash, warm/dry Medical Decision Making Diagnostic Impression: Primary Impression: Acute asthma exacerbation Qualified Codes: J45.41 - Moderate persistent asthma with (acute) exacerbation Additional Impression: Eosinophilia ER Course Patient presents with a history of asthma presents with dyspnea and wheezing with some improvement by EMS. Differential includes acute myocardial infarction , bronchitis, pneumonia, pulmonary embolus amongst others. Based on his clinical exam pulmonary embolus is less likely. Evaluation with EKG, chest x- ray and labs including magnesium. The patient will be treated with Solu-Medrol , gentle IV hydration and reading treatments. EKG sinus tachycardia. Chest x-ray no infiltrates. Labs with minimal leukocytosis with eosinophilia. Glucose minimally elevated as is CPK. Troponin is negative. Patient improved after breathing treatments and feels stable to go home. Discussed the significance of prednisone. Also discussed albuterol. Advised patient to follow-up with his private physician on Monday which is tomorrow. Patient stable for outpatient observation and treatment. Laboratory Tests Test 12/30/18 14:50 White Blood Count 11.7 K/UL (4.8-10.8) H Red Blood Count 5.17 M/UL (4.70-6.10) Hemoglobin 16.5 G/DL (14.2-18.0) Hematocrit 45.4 % (42.0-52.0) Mean Corpuscular Volume 88 FL (80-99) Mean Corpuscular Hemoglobin 31.9 PG (27.0-31.0) H Mean Corpuscular Hemoglobin Concent 36.3 G/DL (32.0-36.0) H Red Cell Distribution Width 9.9 % (11.6-14.8) L Platelet Count 319 K/UL (150-450) Mean Platelet Volume 4.5 FL (6.5-10.1) L Neutrophils (%) (Auto) 65.4 % (45.0-75.0) Lymphocytes (%) (Auto) 17.9 % (20.0-45.0) L Monocytes (%) (Auto) 3.3 % (1.0-10.0) Eosinophils (%) (Auto) 12.4 % (0.0-3.0) H Basophils (%) (Auto) 1.1 % (0.0-2.0) Prothrombin Time 10.0 SEC (9.30-11.50) Prothrombin Time INR 0.9 (0.9-1.1) PTT 25 SEC (23-33) Sodium Level 144 MMOL/L (136-145) Potassium Level 3.7 MMOL/L (3.5-5.1) Chloride Level 105 MMOL/L (98-107) Carbon Dioxide Level 30 MMOL/L (21-32) Anion Gap 9 mmol/L (5-15) Blood Urea Nitrogen 15 mg/dL (7-18) Creatinine 1.2 MG/DL (0.55-1.30) Estimate Glomerular Filtration Rate mL/min (>60) Glucose Level 125 MG/DL (74-106) H Calcium Level 9.1 MG/DL (8.5-10.1) Magnesium Level 2.2 MG/DL (1.8-2.4) Total Bilirubin 0.6 MG/DL (0.2-1.0) Aspartate Amino Transferase (AST) 33 U/L (15-37) Alanine Aminotransferase (ALT) 36 U/L (12-78) Alkaline Phosphatase 54 U/L (46-116) Total Creatine Kinase 385 U/L (26-308) H Troponin I 0.000 ng/mL (0.000-0.056) Pro-B-Type Natriuretic Peptide 65 pg/mL (0-125) Total Protein 7.2 G/DL (6.4-8.2) Albumin 3.5 G/DL (3.4-5.0) Globulin 3.7 g/dL Albumin/Globulin Ratio 0.9 (1.0-2.7) L EKG Diagnostic Results Rate: normal Rhythm: NSR ST Segments: no acute changes - Right axis deviation nonspecific ST-T wave changes Rhythm Strip Diag. Results EP Interpretation: yes Rhythm: no PVC's, no ectopy, other - Sinus tachycardia 110 Chest X-Ray Diagnostic Results Chest X-Ray Diagnostic Results : Chest X-Ray Ordered: Yes # of Views/Limited/Complete: 1 View Indication: Shortness of Breath EP Interpretation: Yes Interpretation: no consolidation, no effusion, no pneumothorax Impression: No acute disease Electronically Signed by: Electronically signed by Pavan Piña MD Last Vital Signs Date Time Temp Pulse Resp B/P (MAP) Pulse Ox O2 Delivery O2 Flow Rate FiO2 12/30/18 16:20 98.5 94 20 128/76 100 Room Air 12/30/18 15:11 21 Status: improved Disposition: HOME, SELF-CARE Condition: Improved Scripts Prednisone* (PREDNISONE*) 20 Mg Tablet 40 MG ORAL DAILY, #10 TAB Prov: Pavan Piña MD 12/30/18 Albuterol Sulfate* (ALBUTEROL SULFATE MDI*) 8.5 Gm Hfa.aer.ad 2 PUFF INH Q6H, #1 EA 1 Refill Prov: Pavan Piña MD 12/30/18 Pavan Piña MD Dec 30, 2018 14:34
[2018-12-30 14:45] VITALS: BP 126/77
--- NOTE | 2018-12-30 14:45 | NUR ---
ED Nurse Note: Patient was brought in to ER by RA from home due to wheezing and difficulty breathing. Patient denies any SOB or chest pain at this time. Patient on room air, O2 sat 99%. Patient is aox4. Placed the patient on manager cardiac cath.
[2018-12-30] MEDS ORDERED: Albuterol ud Inhalation ONE (15:04)
[2018-12-30] MEDS ORDERED: Ipratropium 0.02% Inh Soln 2.5ml UD ONE (15:05)
[2018-12-30] MEDS ORDERED: Solu-MEDROL 125mg Inj ONE (15:06)
--- NOTE | 2018-12-30 15:15 | NUR ---
ED Nurse Note: Patient unable to give urine sample at this time. Dr. Piña notified. No new orders at this time.
[2018-12-30 15:19] LABS: BASOPHILS % (AUTO) 1.1 % (0.0-2.0); EOSINOPHILS % (AUTO) 12.4 % (0.0-3.0); HEMATOCRIT 45.4 % (42.0-52.0); HEMOGLOBIN 16.5 G/DL (14.2-18.0); LYMPHOCYTES % (AUTO) 17.9 % (20.0-45.0); MEAN CORPUSCULAR VOLUME 88 FL (80-99); MONOCYTES % (AUTO) 3.3 % (1.0-10.0); NEUTROPHILS % (AUTO) 65.4 % (45.0-75.0); PLATELET COUNT 319 K/UL (150-450); RED BLOOD COUNT 5.17 M/UL (4.70-6.10); RED CELL DISTRIBUTION WIDTH 9.9 % (11.6-14.8); WHITE BLOOD COUNT 11.7 K/UL (4.8-10.8)
[2018-12-30 15:28] LABS: ANION GAP 9 mmol/L (5-15); BLOOD UREA NITROGEN 15 mg/dL (7-18); CALCIUM 9.1 MG/DL (8.5-10.1); CARBON DIOXIDE 30 MMOL/L (21-32); CHLORIDE 105 MMOL/L (98-107); CREATININE 1.2 MG/DL (0.55-1.30); POTASSIUM 3.7 MMOL/L (3.5-5.1); SODIUM 144 MMOL/L (136-145)
[2018-12-30 15:42] LABS: ALANINE AMINOTRANSFERASE 36 U/L (12-78); ALBUMIN 3.5 G/DL (3.4-5.0); ALBUMIN/GLOBULIN RATIO 0.9 (1.0-2.7); ALKALINE PHOSPHATASE 54 U/L (46-116); ASPARTATE AMINO TRANSFERASE 33 U/L (15-37); BILIRUBIN,TOTAL 0.6 MG/DL (0.2-1.0); CREATINE KINASE 385 U/L (26-308)
[2018-12-30 15:48] LABS: INR 0.9 (0.9-1.1)
[2018-12-30] MEDS ORDERED: ALBUTEROL SULF8.5 GM INH (16:13)
[2018-12-30] MEDS ORDERED: PREDNISONE20 MG ORAL (16:13)
[2018-12-30 16:20] VITALS: BP 128/76
--- NOTE | 2018-12-30 16:20 | NUR ---
ER DISCHARGE NOTE: Patient is cleared to be discharged per ERMD, pt is aox4, on room air, with stable vital signs. pt was given dc and prescription instructions, pt was able to verbalize understanding, pt id band and iv site removed without complications. pt is able to ambulate with steady gait. pt took all belongings.
--- NOTE | 2018-12-31 13:14 | Diagnostic Imaging Report ---
Indication: Dyspnea Comparison: 08/06/2016 A single view chest radiograph was obtained. Findings: Cardiomediastinal appearance is within normal limits for age. The lungs are clear. Pulmonary vascularity is appropriate. The diaphragmatic contour is smooth and costophrenic angles are sharp. No pleural effusions are identified. The bones are unremarkable. Impression: No acute findings
--- NOTE | 2019-01-01 07:27 | Cardiology Report ---
APPROVED REPORT EKG Measurement Heart [id number] LA 170P75 [id number] Sinus tachycardia Right superior axis deviation Septal infarct, age undetermined Abnormal ECG
== END 2018-12-30 16:20 | disposition home or self-care (01) ==
LOC: EDBD 14:28 → EMR 14:43
DX: J45.41 Moderate persistent asthma with (acute) exacerbation (principal); D72.1 Eosinophilia; J44.9 Chronic obstructive pulmonary disease, unspecified; Z85.9 Personal history of malignant neoplasm, unspecified; Z95.5 Presence of coronary angioplasty implant and graft
CPT/HCPCS: 36415; 71045; 80053; 82550; 83735; 83880; 84484; 85025; 85610; 85730; 93005; 94640; 94664; 96361; 96374; 99284; J2930; J7030